=== PATIENT | male | born 2005 | race Caucasian/White ===

== ENCOUNTER 2024-07-27 14:28 | Emergency (ER) | payer BC, SELFPAY ==
--- NOTE | 2024-07-27 14:34 | ED.GENADULT ---
HPI - General Adult General Chief complaint: Alcohol/Intoxication Stated complaint: etoh/mental health Time Seen by Provider: 07/27/24 14:30 History of Present Illness HPI narrative: Patient is a 18-year-old white male who has a [employer] student, he is from [place]. He reports that he has been binge drinking over the last 3 days. 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 He takes Lamictal for that. The patient has no other significant health problems. Apparently he was sent by [employer] to the ER ?to get some help?. Patient denies suicidal ideation or plan at this time. He reports he has been drinking pretty heavily over the last couple of days. No chest pain, no shortness of breath, no fevers, no chills, no traumatic injuries. Related Data Home Medications ?Medication ?Instructions ?Recorded ?Confirmed clonazepam 0.5 mg tablet 0.5 mg PO QHS 07/27/24 07/27/24 clonidine HCl 0.1 mg tablet 0.1 mg PO DAILY 07/27/24 07/27/24 escitalopram oxalate 5 mg tablet 5 mg PO DAILY 07/27/24 07/27/24 lamotrigine 200 mg tablet 100 mg PO DAILY 07/27/24 07/27/24 (Lamictal) Review of Systems Status of ROS: Reports: 6 or more systems reviewed and unremarkable except as noted in History and below Exam Narrative: Exam Narrative: Objective vital signs show his pulse rate is slightly elevated otherwise unremarkable He is alert orient x3 very cooperative HEENT is unremarkable and dry mucous membranes in the mouth neck is supple chest clear pulse regular abdomen benign extremities are no edema neurologic nonfocal No evidence of trauma or injury. Const: Vital Signs, click to edit/add: Vital Signs - 24 hr 07/27/24 14:35 Temperature 98.9 F Pulse Rate [Right Pulse Oximeter] 110 H Respiratory Rate 18 Blood Pressure [Ri ght Upper Arm] 135/79 Pulse Oximetry 97 Oxygen Delivery Me thod Room Air Course Vital Signs Vital signs: Initial Vital Signs Temperature 98.9 F 07/27/24 14:35 Temperature Source Temporal Artery Scan 07/27/24 14:35 Pulse Rate 110 H 07/27/24 14:35 Respiratory Rate 18 07/27/24 14:35 Blood Pressure 135/79 07/27/24 14:35 Blood Pressure Mean 97 07/27/24 14:35 Blood Pressure Position Sitting 07/27/24 14:35 Pulse Oximetry 97 07/27/24 14:35 Oxygen Delivery Method Room Air 07/27/24 14:35 Vital Signs Temperature 98.9 F 07/27/24 14:35 Pulse Rate 110 H 07/27/24 14:35 Respiratory Rate 18 07/27/24 14:35 Blood Pressure 135/79 07/27/24 14:35 Pulse Oximetry 97 07/27/24 14:35 Oxygen Delivery Method Room Air 07/27/24 14:35 Temperature 98.9 F 07/27/24 14:35 Pulse Rate 110 H 07/27/24 14:35 Respiratory Rate 18 07/27/24 14:35 Blood Pressure 135/79 07/27/24 14:35 Pulse Oximetry 97 07/27/24 14:35 Oxygen Delivery Method Room Air 07/27/24 14:35 Medications Administered Medications: Discontinued Medications Generic Name Dose Route Start Last Admin Trade Name Markos PRN Reason Stop Dose Admin Sodium Chloride 1,000 mls @ 6,000 mls/hr 07/27/24 14:45 07/27/24 15:58 0.9 % Sodium Chloride 1000 Ml IV 07/27/24 14:54 Infused .Q10M JACINTA Infusion Medical Decision Making MDM Narrative Medical decision making narrative: 18-year-old white male with a history of depression, alcohol binge drinking, what he describes is LSD induced visual hallucinations, for which she is on Lamictal. He presents after a alcohol [place] over a few days. He denies any belly pain, he denies fever, denies suicidality. At this point I am thinking that it would be appropriate to check his alcohol level. He does not appear to be clinically markedly intoxicated but does smell slightly of alcohol and I think we should check an alcohol level, lab studies, given some IV fluid. Will have social Service see him regarding alcohol treatment options. I think he needs a repeat discussion about his mental health after he is more sober, depending on his alcohol level. Addendum: 3:00 p.m.: The patient met with social service and they discussed alcohol treatment options. The patient denies any suicidality in my interview. Will need to see how high his alcohol level is, perhaps after his fluids we can reassess his mental state. His urine tox screen is negative. Dr. Campos will follow at change of shift. Lab Data Labs: Lab Results 07/27/24 07/27/24 Range/Units 15:01 15:20 WBC 6.26 (4.50-11.00) K/uL RBC 4.96 (4.30-5.90) m/uL Hgb 14.7 (13.5-17.5) gm/dL Hct 44.2 (37.0-53.0) % MCV 89 (80-100) fL MCH 30 (26-34) pg MCHC 33 (32-36) gm/dL RDW Coeff of Dionna 13.1 (11.5-15.5) % Plt Count 324 (140-440) K/uL Neut % (Auto) 65.1 (42.0-72.0) % Lymph % (Auto) 26.7 (20-44) % [place] % (Auto) 6.9 (0.0-11.0) % Eos % (Auto) 0.5 (0.0-7.0) % Baso % (Auto) 0.5 (0.0-3.0) % Neut # (Auto) 4.08 (1.7-7.0) K/uL Lymph # (Auto) 1.67 (0.90-2.90) K/uL [place] # (Auto) 0.40 (0.00-0.90) K/UL Eos # (Auto) 0.03 (0.00-0.50) K/uL Baso # (Auto) 0.03 (0.00-0.30) K/uL Abs Immat Gran (auto) 0.02 (0.00-0.30) K/uL Imm/Tot Granulo (auto) 0.3 % Sodium 140 (135-149) mmol/L Potassium 3.7 (3.6-5.1) mmol/L Chloride 99 (96-114) mmol/L Carbon Dioxide 23 (20-32) mmol/L Anion Gap 18 H (7-15) mEq/L BUN 9 (5-24) mg/dL Creatinine 0.9 (0.5-1.5) mg/dL Estimated Creat Clear 121.80 Estimated GFR 125 ml/min Glucose 82 (60-115) mg/dL Calcium 9.3 (8.4-10.6) mg/dL C-Reactive Protein < 0.5 L (0.5-1.0) mg/dL Salicylates < 1.0 L (1.0-10) mg/dL Urine Opiates Screen Negative (Negative) Ur Oxycodone Screen Negative (Negative) Urine Methadone Screen Negative (Negative) Acetaminophen < 10.0 L (10.0-30.0) ug/mL Ur Barbiturates Screen Negative (Negative) U Tricyclic Antidepress Negative (Negative) Ur Phencyclidine Scrn Negative (Negative) Ur Amphetamines Screen Negative (Negative) U Methamphetamines Scrn Negative (Negative) U Benzodiazepines Scrn Negative (Negative) Urine Cocaine Screen Negative (Negative) U Marijuana (THC) Screen Negative (Negative) Ur Drug Screen Comment See Note Ethyl Alcohol 0.09 H (0.01-0.03) % Discharge Plan Discharge Clinical Impression: Alcoholic intoxication, Depression Patient Disposition: Home w/ Parent or Adult Condition: Stable Additional Instructions: Touch base with [employer] [facility] tomorrow, recommend you see the mental health resource at [facility] as well. Return to the ED as needed. Follow direction of the executive secretary social welfare for alcohol cessation resources. Activity Level: Light activity Discharge Diet: Regular Prescriptions: No Action lamotrigine [Lamictal] 200 mg tablet 100 mg PO DAILY escitalopram oxalate 5 mg tablet 5 mg PO DAILY clonidine HCl 0.1 mg tablet 0.1 mg PO DAILY clonazepam 0.5 mg tablet 0.5 mg PO QHS Rx Instructions: administer 30 minutes before bedtime Stand Alone Forms: [employer] Info Instructions
[2024-07-27 14:35] VITALS: BP 135/79; PULSE 110; RESP 18; TEMP 37.2; O2SAT 97; BMI 21.4
[2024-07-27 15:19] LABS: Amphetamine Screen Urine Negative (Negative); Barbiturate Screen Urine Negative (Negative); Benzodiazepines Screen Urine Negative (Negative); Cannabinoid Screen Urine Negative (Negative); Cocaine Screen Urine Negative (Negative); Methadone Screen Urine Negative (Negative); Methamphetamines Screen Urine Negative (Negative); Opiate Screen Urine Negative (Negative); Oxycodone Screen Urine Negative (Negative); Phencyclidine Screen Urine Negative (Negative); Tricyclic Antidepressant Urine Negative (Negative)
[2024-07-27] MEDS: 0.9 % SODIUM CHLORIDE 1000 ml 1,000 ML 6000 ML IV (15:24)
[2024-07-27 15:36] LABS: Basophils Absolute Auto 0.03 K/uL (0.00-0.30); Basophils Percent Auto 0.5 % (0.0-3.0); Eosinophils Absolute Auto 0.03 K/uL (0.00-0.50); Eosinophils Percent Auto 0.5 % (0.0-7.0); Hematocrit 44.2 % (37.0-53.0); Hemoglobin* 14.7 gm/dL (13.5-17.5); Immature Granulocytes Abs Auto 0.02 K/uL (0.00-0.30); Immature Granulocytes Pct Auto 0.3 %; Lymphocytes Absolute Auto 1.67 K/uL (0.90-2.90); Lymphocytes Percent Auto 26.7 % (20-44); Mean Corpuscular HGB Conc 33 gm/dL (32-36); Mean Corpuscular Hemoglobin 30 pg (26-34); Mean Corpuscular Volume 89 fL (80-100); Monocytes Percent Auto 6.9 % (0.0-11.0); Neutrophils Absolute Auto 4.08 K/uL (1.7-7.0); Neutrophils Percent Auto 65.1 % (42.0-72.0); Platelet Count* 324 K/uL (140-440); RDW Coefficient of Variation % 13.1 % (11.5-15.5); Red Blood Count 4.96 m/uL (4.30-5.90); Slide Review Reflex No; White Blood Count* 6.26 K/uL (4.50-11.00)
[2024-07-27 15:50] LABS: Chloride* 99 mmol/L (96-114); Potassium* 3.7 mmol/L (3.6-5.1); Sodium* 140 mmol/L (135-149)
[2024-07-27 15:52] LABS: Creatinine* 0.9 mg/dL (0.5-1.5); Estimated Glomerular Filt Rate 125 ml/min
[2024-07-27 15:53] LABS: Anion Gap 18 mEq/L (7-15); Blood Urea Nitrogen* 9 mg/dL (5-24); Calcium* 9.3 mg/dL (8.4-10.6); Carbon Dioxide* 23 mmol/L (20-32); Ethanol* 0.09 % (0.01-0.03); Glucose* 82 mg/dL (60-115)
[2024-07-27 16:02] LABS: Acetaminophen* < 10.0 ug/mL (10.0-30.0); C Reactive Protein* < 0.5 mg/dL (0.5-1.0); Salicylate* < 1.0 mg/dL (1.0-10)
--- NOTE | 2024-07-27 17:00 | PC.SOCIAL ---
Social work: Prior to discharge, met with pt regarding substance treatment options. Discussed option for detox placement from the hospital if pt agrees. Pt is not interested in this as he wants to get back to [facility]. He states he is interested in out-pt options for substance treatment. Provided pt with printed list of in-pt, out-pt and hotline resources for substance treatment support. Discussed in detail the local out-pt option of [facility]. Pt states he has heard of this before and will look into it. Also suggested pt contact [facility] for support and connection to campus and community resources. Pt states he has a psychiatrist he is connected to this summer while off campus and is still connected with that psychiatrist for support. Pt was appreciative of information provided and is aware of how to contact this social work therapist if additional resources are needed.
== END 2024-07-27 16:37 | disposition home or self-care (01) ==
PROVIDERS: Emergency Provider Family Medicine
DX: F10.129 Alcohol abuse with intoxication, unspecified (principal); F32.A Depression, unspecified
CPT/HCPCS: 36415; 80048; 80143; 80179; 80306; 82077; 85025; 86140; 99283; 99284; J7030